=== PATIENT | male | born 1995 | race Caucasian/White ===

== ENCOUNTER 2016-11-13 05:41 | Emergency (ER) | payer OTHER ==
[2016-11-13 05:55] VITALS: BP 172/88; PULSE 110; RESP 18; TEMP 97.8; O2SAT 97
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
--- NOTE | 2016-11-13 06:21 | PD ---
Physical Exam Date Seen by Provider: Nov 13, 2016 Time Seen by Provider: 06:19 Narrative Skin: Patient has a 2 cm laceration to the left eyebrow. Mild swelling. Data Data Last Documented VS Vital Signs Date Time Temp Pulse Resp B/P Pulse Ox O2 Delivery O2 Flow Rate FiO2 11/13/16 05:58 18 11/13/16 05:55 97.8 110 172/[address] Brain W/O Iv Contrast(Rout) (11/13/16 05:54) Alcohol (Ethanol) (11/13/16 05:54) MDM Medical Record Reviewed: Yes Supervised Visit with VANDANA: Yes Differential Diagnosis MDM: High Differential diagnoses: Fracture, sprain, strain, dislocation, contusion, neurovascular injury Narrative Course Patient's laceration is close to sutures. Procedures Procedure Narrative LACERATION LOCATION: Left eyebrow LENGTH: 2 cm NUMBER OF STITCHES/LULU: 5 REPAIR: The area of the laceration was prepped with Betadine and sterilely draped. The laceration was infiltrated with 1% lidocaine with epinephrine. The wound was copiously irrigated and explored without evidence of foreign body , tendon injury or neurovascular injury. The wound was closed using 5-0 proline. This was a simple single layer repair. A sterile dressing was applied. The patient was advised to keep the dressing clean and dry. Patient tolerated the procedure well. Diagnosis Primary Impression: Facial laceration Qualified Code: S01.81XA - Facial laceration, initial encounter Patient Instructions: General Instructions Additional Instruction: Rest. Ice pack tonight. Tylenol or Advil for pain. Daily wound care with soap, water, Neosporin. Sutures out in 5 days. Sunscreen and mederma for 6 months. Return to the ER for any problems. Med/Other Pt SpecificInfo: Wound Care Scripts No Active Prescriptions or Reported Meds Disposition: [address] LAW ENFORCEMNT Condition: Stable Vitor Gonzales Nov 13, 2016 06:21
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
[2016-11-13 07:05] VITALS: BP 120/71; PULSE 81; RESP 17; TEMP 97.8; O2SAT 99
[2016-11-13 07:27] VITALS: BP 118/81; TEMP 97.8
== END 2016-11-13 07:27 | disposition home or self-care (01) ==
LOC: NEPE 05:41
DX: S01.81XA Laceration without foreign body of other part of head, initial encounter (principal); X58.XXXA Exposure to other specified factors, initial encounter
CPT/HCPCS: 12011; 70450; 80307